=== PATIENT | male | born 1975 | race African-American/Black ===

== ENCOUNTER → 2018-09-07 | Outpatient (CLI) | payer OTHER | LOC: ULTRA 14:52 | DX: N43.3 Hydrocele, unspecified (principal) ==

== ENCOUNTER 2019-07-24 19:37 | Emergency (ER) | payer OTHER ==
[~2019-07-24] VITALS: Ht 175.3 cm; Wt 133.8 kg
[2019-07-24] MEDS ORDERED: PEPCID COMPLET1 EACH PO (19:44)
[2019-07-24 20:14] LABS: URINE BILIRUBIN NEGATIVE (Negative); URINE BLOOD NEGATIVE (Negative); URINE CLARITY CLEAR; URINE COLOR YELLOW; URINE GLUCOSE-RANDOM* NEGATIVE (Negative); URINE KETONES NEGATIVE (Negative); URINE LEUKOCYTES-REFLEX NEGATIVE (Negative); URINE NITRITE-REFLEX NEGATIVE (Negative); URINE PROTEIN (DIPSTICK) NEGATIVE (Negative); URINE UROBILINOGEN 0.2 E.U./dl (0.2-1.0)
[2019-07-24 20:29] LABS: AMP/METHAMP Negative (Negative); BARBITURATES Negative (Negative); BENZODIAZEPINES Negative (Negative); COCAINE Negative (Negative); METHADONE Negative (Negative); OPIATES Negative (Negative); PCP Negative (Negative)
[2019-07-24 21:04] LABS: ABSOLUTE NEUTROPHILS 3.1 thou/uL (1.4-8.2); EOSINOPHILS 7.7 % (0.0-3.0); HEMATOCRIT 42.9 % (42.0-52.0); LYMPHOCYTES 27.7 % (24.0-44.0); MCH 28.9 pg (26.0-34.0); MCHC 32.6 g/dL (28.0-37.0); MCV 88.7 fL (80.0-100.0); MONOCYTES 9.5 % (1.0-8.0); PLATELET COUNT 222 thou/uL (150-400); POLYS 54.1 % (36.0-66.0); RBC 4.84 mil/uL (4.50-6.00); RDW 12.9 % (10.5-14.5); WBC 5.8 thou/uL (4.0-11.0)
[2019-07-24 21:18] LABS: ANION GAP 8 mmol/L (7-16); BUN 11 mg/dL (7-18); CALCIUM 9.3 mg/dL (8.5-10.1); CHLORIDE 99 mmol/L (98-107); CO2 28 mmol/L (21-32); CREATININE 1.1 mg/dL (0.7-1.3); GLUCOSE 86 mg/dL (74-106); SODIUM 135 mmol/L (136-145)
[2019-07-24 21:30] LABS: ALBUMIN 3.6 g/dL (3.4-5.0); SGOT 25 U/L (15-37); SGPT 33 U/L (30-65); TOTAL BILIRUBIN 0.4 mg/dL (<0.1-1.0); TOTAL PROTEIN 7.9 g/dL (6.4-8.2); TROPONIN-I <0.06 ng/mL (<0.06)
[2019-07-24 22:05] VITALS: BP 129/80
--- NOTE | 2019-07-25 17:01 | EKG ---
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: : 1975 Requested By: Tian Mata Order Number: [id number] MD: Markie Kang Measurements Intervals [place] Rate: 64 P: 49 NC: 150 QRS: -37 QRSD: 112 T: -12 QT: 412 QTc: 425 Interpretive Statements Sinus rhythm Incomplete RBBB and LAFB Abnormal R-wave progression, late transition Compared to ECG 09/25/2008 15:51:02 No significant change was found Electronically Signed On 07-25-2019 17:00:49 CLOTH MENDER by Markie Kang [email or web address] <ELECTRONICALLY SIGNED> By: Markie Kang MD, [facility] 07/25/191699 53 53 Markie Kang MD, FAC /EPI
== END 2019-07-24 22:06 | disposition home or self-care (01) ==
LOC: ER 19:37
PROVIDERS: Emergency Medicine
DX: R53.1 Weakness (principal); R00.2 Palpitations; R42 Dizziness and giddiness; Z88.1 Allergy status to other antibiotic agents; Z91.041 Radiographic dye allergy status

== ENCOUNTER → 2019-08-23 | Outpatient (CLI) | payer OTHER ==
[~2019-08-23] MED LIST: PEPCID COMPLET1 EACH PO
== END ==
LOC: CAT 14:21
DX: Z13.6 Encounter for screening for cardiovascular disorders (principal); E78.00 Pure hypercholesterolemia, unspecified; I25.10 Atherosclerotic heart disease of native coronary artery without angina pectoris

== ENCOUNTER 2020-11-29 00:41 | Emergency (ER) | payer OTHER ==
[~2020-11-29] VITALS: Ht 177.8 cm; Wt 136.1 kg
[2020-11-29 01:30] LABS: ABSOLUTE NEUTROPHILS 3.9 thou/uL (1.4-8.2); BASOPHILS 0.6 % (0.0-2.0); EOSINOPHILS 2.5 % (0.0-3.0); HEMATOCRIT 44.8 % (42.0-52.0); HEMOGLOBIN 14.5 gm/dL (14.0-18.0); LYMPHOCYTES 28.9 % (24.0-44.0); MCH 28.6 pg (26.0-34.0); MCHC 32.4 g/dL (28.0-37.0); MCV 88.2 fL (80.0-100.0); PLATELET COUNT 309 thou/uL (150-400); RBC 5.08 mil/uL (4.50-6.00); RDW 12.9 % (10.5-14.5); WBC 6.8 thou/uL (4.0-11.0)
[2020-11-29 01:33] LABS: ANION GAP 12 mmol/L (7-16); BUN 15 mg/dL (7-18); CALCIUM 9.5 mg/dL (8.5-10.1); CHLORIDE 102 mmol/L (98-107); CO2 27 mmol/L (21-32); CREATININE 1.5 mg/dL (0.7-1.3); GLUCOSE 105 mg/dL (74-106); POTASSIUM 3.2 mmol/L (3.5-5.1); SODIUM 141 mmol/L (136-145)
[2020-11-29 01:44] LABS: ALBUMIN 3.8 g/dL (3.4-5.0); SGOT 38 U/L (15-37); SGPT 53 U/L (30-65); TOTAL BILIRUBIN 0.5 mg/dL (0.2-1.0); TOTAL PROTEIN 8.5 g/dL (6.4-8.2); TROPONIN-I <0.06 ng/mL (<0.06)
[2020-11-29 02:43] VITALS: BP 111/69
--- NOTE | 2020-11-29 07:01 | EKG ---
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 : 1975 Requested By: Hima Jeffries Order Number: [id number] MD: Cheko To Measurements Intervals [place] Rate: 136 P: 37 OR: 106 QRS: -87 QRSD: 112 T: 32 QT: 308 QTc: 464 Interpretive Statements Sinus tachycardia Left anterior fascicular block Abnormal R-wave progression, late transition ST elev, probable normal early repol pattern Baseline wander in lead(s) V1 Compared to ECG 07/24/2019 19:54:12 ST (T wave) deviation now present Sinus rhythm no longer present Incomplete right bundle-branch block no longer present Right bundle-branch block no longer present Electronically Signed On 11-29-2020 7:01:11 CLINICAL SERVICES CONSULTANT by Cheko To [email or web address] <ELECTRONICALLY SIGNED> By: Cheko To MD, FACC 11/29/20 0701 Cheko To MD, FAC /EPI
== END 2020-11-29 02:44 | disposition home or self-care (01) ==
LOC: ER 00:41
PROVIDERS: Emergency Medicine
DX: R00.2 Palpitations (principal); E87.6 Hypokalemia; R00.0 Tachycardia, unspecified; Z88.8 Allergy status to other drugs, medicaments and biological substances; Z91.041 Radiographic dye allergy status

== ENCOUNTER → 2020-12-04 | Outpatient (CLI) | payer OTHER | LOC: SJCVCIMAG 09:23 | PROVIDERS: ATTEND Internal Medicine Cardiovascular Disease | DX: I34.0 Nonrheumatic mitral (valve) insufficiency (principal); R00.2 Palpitations; R06.00 Dyspnea, unspecified ==

== ENCOUNTER → 2021-01-22 | Outpatient (CLI) | payer OTHER | LOC: SJCVCIMAG 07:45 | PROVIDERS: ATTEND Internal Medicine Cardiovascular Disease | DX: R00.0 Tachycardia, unspecified (principal); I49.1 Atrial premature depolarization; I49.3 Ventricular premature depolarization; I49.9 Cardiac arrhythmia, unspecified ==

== ENCOUNTER 2021-10-27 08:23 | Emergency (ER) | payer OTHER ==
[~2021-10-27] VITALS: Ht 175.3 cm; Wt 129.3 kg
[2021-10-27 09:01] LABS: ABSOLUTE NEUTROPHILS 3.2 thou/uL (1.4-8.2); BASOPHILS 0.7 % (0.0-2.0); HEMATOCRIT 44.2 % (42.0-52.0); HEMOGLOBIN 14.3 gm/dL (14.0-18.0); LYMPHOCYTES 23.1 % (24.0-44.0); MCH 28.1 pg (26.0-34.0); MCHC 32.3 g/dL (28.0-37.0); MCV 87.1 fL (80.0-100.0); MONOCYTES 10.4 % (1.0-8.0); PLATELET COUNT 281 thou/uL (150-400); POLYS 62.8 % (36.0-66.0); RBC 5.07 mil/uL (4.50-6.00); RDW 12.8 % (10.5-14.5); WBC 5.1 thou/uL (4.0-11.0)
[2021-10-27 09:12] LABS: CALCIUM 9.9 mg/dL (8.5-10.1); CREATININE 1.3 mg/dL (0.7-1.3)
[2021-10-27 10:24] VITALS: BP 139/87
--- NOTE | 2021-10-31 09:33 | EKG ---
[address] [address] ELECTROCARDIOGRAM REPORT Name: ROCK ORDOÑEZ [facility] [id number] Admission: 10/27/21 Attend Phys: Discharge: 10/27/21 Date of : 71 Report #: [id number] 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
== END 2021-10-27 10:25 | disposition home or self-care (01) ==
LOC: ER 08:23
PROVIDERS: Student in an Organized Health Care Education/Training Program
DX: I10 Essential (primary) hypertension (principal); F41.9 Anxiety disorder, unspecified; Z98.890 Other specified postprocedural states; Z88.1 Allergy status to other antibiotic agents; Z91.041 Radiographic dye allergy status; Z88.8 Allergy status to other drugs, medicaments and biological substances